=== PATIENT | female | born 1990 | race Hispanic/Latino ===

== ENCOUNTER 2021-05-28 17:58 | Emergency (ER) | payer BC, OTHER ==
[2021-05-28] MEDS ORDERED: NA CHLORIDE 0.9% 500 ML ONE (19:12)
[2021-05-28] MEDS ORDERED: KETOROLAC 30 MG/ML INJ ONE (19:12)
[2021-05-28 19:22] LABS: Urine Blood 2+ (Negative); Urine Glucose Negative (Negative); Urine Protein Negative (Negative); Urine Specific Gravity 1.025 (1.005-1.030)
[2021-05-28 19:44] LABS: Urine Specific Gravity/Preg 1.025 (1.005-1.030)
[2021-05-28 19:57] LABS: Basophils % 0.4 % (0-1.3); Hematocrit 35.4 % (36.0-45.0); Lymphocytes % 32.3 % (15.3-44.8); MPV 8.8 fL (7.6-11.3)
[2021-05-28 20:04] LABS: Albumin 3.5 g/dL (3.4-5.0); Bilirubin Total 0.2 mg/dL (0.2-1.0); Potassium 3.8 mmol/L (3.5-5.1); Protein, Total 7.7 g/dL (6.4-8.2)
--- NOTE | 2021-05-28 20:35 | EDPHYS ---
Physician Documentation [facility] Name: Amira Soto Age: 30 yrs Sex: Female : 1990 Arrival Date: 05/28/2021 Time: 18:11 Bed 20 Private MD: ED Physician Eder Jimenez HPI: 05/28 18:47 This 30 yrs old Female presents to ER via Ambulatory with complaints of Hand cora Pain - cramping. 18:47 The patient or guardian reports decreased range of motion, pain. The complaints affect cora the right hand diffusely. Context: The problem was sustained at an unknown location, resulted from an unknown cause. Onset: The symptoms/episode began/occurred today. Modifying factors: The symptoms are alleviated by elevation, holding still, the symptoms are aggravated by movement. Associated signs and symptoms: The patient has no apparent associated signs or symptoms. Severity of symptoms: At their worst the symptoms were moderate, in the emergency department the symptoms are unchanged. The patient has not experienced similar symptoms in the past. 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 - Social history:: Smoking status: Patient denies any tobacco usage or history of. ROS: 18:49 Constitutional: Negative for fever, chills, and weight loss, Eyes: Negative for injury, cora pain, redness, and discharge, ENT: Negative for injury, pain, and discharge, Neck: Negative for injury, pain, and swelling, Cardiovascular: Negative for chest pain, palpitations, and edema, Respiratory: Negative for shortness of breath, cough, wheezing, and pleuritic chest pain, Abdomen/GI: Negative for abdominal pain, nausea, vomiting, diarrhea, and constipation, Back: Negative for injury and pain, : Negative for injury, bleeding, discharge, and swelling, Skin: Negative for injury, rash, and discoloration, Neuro: Negative for headache, weakness, numbness, tingling, and seizure, Psych: Negative for depression, anxiety, suicide ideation, homicidal ideation, and hallucinations, Allergy/Immunology: Negative for hives, rash, and allergies, Endocrine: Negative for neck swelling, polydipsia, polyuria, polyphagia, and marked weight changes, Hematologic/Lymphatic: Negative for swollen nodes, abnormal bleeding, and unusual bruising. 18:49 MS/extremity: Positive for decreased range of motion, pain, of the right hand. Exam: 18:49 Constitutional: This is a well developed, well nourished patient who is awake, alert, cora and in no acute distress. Head/Face: Normocephalic, atraumatic. Eyes: Pupils equal round and reactive to light, extra-ocular motions intact. Lids and lashes normal. Conjunctiva and sclera are non-icteric and not injected. Cornea within normal limits. Periorbital areas with no swelling, redness, or edema. ENT: Nares patent. No nasal discharge, no septal abnormalities noted. Tympanic membranes are normal and external auditory canals are clear. Oropharynx with no redness, swelling, or masses, exudates, or evidence of obstruction, uvula midline. Mucous membranes moist. Neck: Trachea midline, no thyromegaly or masses palpated, and no cervical lymphadenopathy. Supple, full range of motion without nuchal rigidity, or vertebral point tenderness. No Meningismus. Chest/axilla: Normal chest wall appearance and motion. Nontender with no deformity. No lesions are appreciated. Cardiovascular: Regular rate and rhythm with a normal S1 and S2. No gallops, murmurs, or rubs. Normal PMI, no JVD. No pulse deficits. Respiratory: Lungs have equal breath sounds bilaterally, clear to auscultation and percussion. No rales, rhonchi or wheezes noted. No increased work of breathing, no retractions or nasal flaring. Abdomen/GI: Soft, non-tender, with normal bowel sounds. No distension or tympany. No guarding or rebound. No evidence of tenderness throughout. Back: No spinal tenderness. No costovertebral tenderness. Full range of motion. Skin: Warm, dry with normal turgor. Normal color with no rashes, no lesions, and no evidence of cellulitis. Neuro: Awake and alert, GCS 15, oriented to person, place, time, and situation. Cranial nerves II-XII grossly intact. Motor strength 5/5 in all extremities. Sensory grossly intact. Cerebellar exam normal. Normal gait. Psych: Awake, alert, with orientation to person, place and time. Behavior, mood, and affect are within normal limits. 18:49 Musculoskeletal/extremity: ROM: intact in all extremities, full active range of motion, full passive range of motion, in the right hand, Circulation is intact in all extremities. Sensation intact. Compartment Syndrome exam of affected extremity: is normal. Joints: All joints are normal except Vital Signs: 18:25 BP 135 / 90; Pulse 76; Resp 16; Temp 97.8; Pulse Ox 100% ; Weight 104.33 kg; Height 5 vg1 ft. 5 in. (165.10 cm); Pain 4/10; 19:45 BP 116 / 80; Pulse 67; Resp 20; Pulse Ox 100% on R/A; cc4 18:25 Body Mass Index 38.27 (104.33 kg, 165.10 cm) vg1 MDM: 18:34 Patient medically screened. cora 18:52 Differential diagnosis: closed fracture, contusion, tendonitis. Data reviewed: vital cora signs, nurses notes, lab test result(s), radiologic studies, plain films. Data interpreted: hall monitor: rate is 76 beats/min, rhythm is regular, Pulse oximetry: on room air is 100 %. Test interpretation: by ED physician or midlevel provider: plain radiologic studies. Counseling: I had a detailed discussion with the patient and/or guardian regarding: the historical points, exam findings, and any diagnostic results supporting the discharge/admit diagnosis, lab results, radiology results, the need for outpatient follow up, for definitive care, a family practitioner, a hand specialist. 20:34 Counseling: I had a detailed discussion with the patient and/or guardian regarding: the pm1 historical points, exam findings, and any diagnostic results supporting the discharge/admit diagnosis, lab results, radiology results, the need for outpatient follow up, to return to the emergency department if symptoms worsen or persist or if there are any questions or concerns that arise at home. 05/28 18:46 Order name: CBC with Diff cora 05/28 19:21 Order name: Urine Dipstick-Ancillary; Complete Time: 20:05 EDMS 05/28 19:29 Order name: Urine --Ancillary (enter results); Complete Time: 20:05 mw2 05/28 19:50 Order name: Comprehensive Metabolic Panel; Complete Time: 20:28 EDMS 05/28 18:46 Order name: Hand Right 3 View XRAY [facility] 05/28 18:46 Order name: Urine Dipstick-Ancillary (obtain specimen); Complete Time: 19:22 [facility] 05/28 18:46 Order name: Urine Test (obtain specimen); Complete Time: 19:22 [facility] 05/28 19:50 Order name: CBC with Automated Diff; Complete Time: 20:28 EDMS Administered Medications: 19:33 Drug: NS 0.9% 500 ml Route: IV; Rate: bolus; Site: right antecubital; cc4 20:53 Follow up: IV Status: Completed infusion; IV Intake: 500ml em 19:33 Drug: TORadol (ketorolac) 30 mg Route: IVP; Site: right antecubital; cc4 20:53 Follow up: Response: No adverse reaction; No change in condition em 20:51 Drug: Flexeril (cyclobenzaprine) 10 mg Route: PO; em 20:54 Follow up: Response: Medication administered at discharge. em Disposition: 05/29 05:58 Co-signature as Attending Physician, Eder Jimenez MD I agree with the assessment and cora plan of care. Disposition Summary: 05/28/21 20:34 Discharge Ordered Location: Home pm1 Problem: new pm1 Symptoms: have improved pm1 Condition: Stable pm1 Diagnosis - Pain in right hand pm1 Followup: cora - With: Private Physician - When: 2 - 3 days - Reason: Recheck today's complaints, Continuance of care, Re-evaluation by your physician Followup: cora - With: - When: 2 - 3 days - Reason: Recheck today's complaints, Re-evaluation by your physician Discharge Instructions: - Discharge Summary Sheet cora - Muscle Cramps and Spasms cora - Musculoskeletal Pain cora - Pain Without a Known Cause cora - How to Use Cold Therapy, [id number] cora - Muscle Cramps and Spasms, [id number] cora Forms: - Medication Reconciliation Form pm1 - Thank You Letter pm1 - Antibiotic Education pm1 - Prescription Opioid Use pm1 - Work release form em Prescriptions: - Diclofenac Sodium 75 mg Oral tablet,delayed release (DR/EC) - take 1 tablet by ORAL route 2 times per day; 20 tablet; Refills: 0, Product cora Selection Permitted - Medrol (Quinn) 4 mg Oral Tablets, Dose Pack - take 1 tablet by ORAL route as directed - follow package instructions; 1 cora packet; Refills: 0, Product Selection Permitted Signatures: Dispatcher [employer] EDEder Michelle MD MD cha Munoz, Edgar, RN RN Bernard Gar, TIME CHECKER TIME CHECKER pm1 Richa Edmondson RN RN vg1 Katelin Sims RN RN cc4 Corrections: (The following items were deleted from the chart) 05/28 20:10 18:47 CBC with Automated Diff ordered. EDMS EDMS 20:10 18:47 COMPREHENSIVE METABOLIC PANEL+C.LAB.BRZ ordered. EDMS EDMS 20:10 20:05 COMPREHENSIVE METABOLIC PANEL+C.LAB.BRZ reviewed. pm1 EDMS 20:10 20:05 CBC with Automated Diff reviewed. pm1 EDMS
--- NOTE | 2021-05-28 20:35 | ER ---
Nurse's Notes [facility] Name: Amira Soto Age: 30 yrs Sex: Female : 1990 Arrival Date: 05/28/2021 Time: 18:11 Bed 20 Private MD: Diagnosis: Pain in right hand Presentation: 05/28 18:25 Chief complaint: Patient states: This morning pt was at work and was throwing the trash vg1 and and Right hand cramped up and was unable to assessment director the trash and fell out of hand. Also states pain became worse throughout the day. Denies any injury/trauma to Right hand. Coronavirus screen: Vaccine status: Patient reports being unvaccinated. Client denies travel out of the [place] in the last 14 days. Ebola Screen: Patient negative for fever greater than or equal to 101.5 degrees Fahrenheit, and additional compatible Ebola Virus Disease symptoms. Initial Sepsis Screen: Does the patient meet any 2 criteria? No. Patient's initial sepsis screen is negative. Does the patient have a suspected source of infection? No. Patient's initial sepsis screen is negative. Risk Assessment: Do you want to hurt yourself or someone else? Patient reports no desire to harm self or others. Onset of symptoms was May 28, 2021. 18:25 Method Of Arrival: Ambulatory vg1 18:25 Acuity: DALLIN 3 vg1 Triage Assessment: 18:31 General: Appears in no apparent distress. uncomfortable, Behavior is calm, cooperative. vg1 Pain: Complains of pain in right hand. 18:33 Neuro: Level of Consciousness is awake, alert, obeys commands, Oriented to person, vg1 place, time, situation, Production Estimator are weak on right Moves all extremities. Gait is steady, Speech is normal, Facial symmetry appears normal. 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 - Social history:: Smoking status: Patient denies any tobacco usage or history of. Screenin:33 Abuse screen: Denies threats or abuse. Nutritional screening: No deficits noted. cc4 Tuberculosis screening: No symptoms or risk factors identified. Fall Risk None identified. Assessment: 19:33 Reassessment: Patient appears in no apparent distress at this time. General: Appears in cc4 no apparent distress. Behavior is calm, cooperative. Pain: Complains of pain in right hand Pain does not radiate. Pain currently is 7 out of 10 on a pain scale. at worst was 9 out of 10 on a pain scale. level that patient reports is acceptable is 0 out of 10 on a pain scale. Quality of pain is described as aching, Pain began this am; denies any injury. 19:33 Neuro: No deficits noted. Level of Consciousness is awake, alert, obeys commands, cc4 Oriented to person, place, time, situation. Cardiovascular: No deficits noted. Respiratory: No deficits noted. Airway is patent Respiratory effort is even, unlabored, Respiratory pattern is regular, symmetrical. GI: No signs and/or symptoms were reported involving the gastrointestinal system. : No signs and/or symptoms were reported regarding the genitourinary system. EENT: No signs and/or symptoms were reported regarding the EENT system. Derm: No deficits noted. Skin is intact, is healthy with good turgor. Musculoskeletal: No deficits noted. Capillary refill < 3 seconds, Range of motion: intact in all extremities, No redness/swelling noted right hand; # 20 g angiocath inserted right AC x 2 attempts \T\ converted to saline lock; blood drawn \T\ sent to lab; IV NS hung to saline lock right AC \T\ infusing \T\ open rate with no s/sx's of infiltration, anny. well; toradol 30 mg given slow IVP as ordered for right hand pain; urine specimen obtained with dipstick \T\ UPT done; UPT negative. Vital Signs: 18:25 BP 135 / 90; Pulse 76; Resp 16; Temp 97.8; Pulse Ox 100% ; Weight 104.33 kg; Height 5 vg1 ft. 5 in. (165.10 cm); Pain 4/10; 19:45 BP 116 / 80; Pulse 67; Resp 20; Pulse Ox 100% on R/A; cc4 18:25 Body Mass Index 38.27 (104.33 kg, 165.10 cm) vg1 ED Course: 18:11 Patient arrived in ED. am2 18:31 Triage completed. vg1 18:31 Arm band placed on. vg1 18:34 Eder Jimenez MD is Attending Physician. cora 19:04 Winston Hanks, RN is Primary Nurse. bp 19:14 Hand Right 3 View XRAY In Process Unspecified. EDMS 19:29 Primary Nurse role handed off by Winston Hanks, TY mw2 19:33 Patient has correct armband on for positive identification. Bed in low position. Call cc4 light in reach. Side rails up X 1. 19:33 No provider procedures requiring assistance completed. cc4 19:41 Katelin Sims, RN is Primary Nurse. cc4 19:42 CBC with Diff Sent. cc4 20:34 Edward Boston MD is Referral Physician. pm1 20:53 IV discontinued, intact, bleeding controlled, No redness/swelling at site. Pressure em dressing applied. Administered Medications: 19:33 Drug: NS 0.9% 500 ml Route: IV; Rate: bolus; Site: right antecubital; cc4 20:53 Follow up: IV Status: Completed infusion; IV Intake: 500ml em 19:33 Drug: TORadol (ketorolac) 30 mg Route: IVP; Site: right antecubital; cc4 20:53 Follow up: Response: No adverse reaction; No change in condition em 20:51 Drug: Flexeril (cyclobenzaprine) 10 mg Route: PO; em 20:54 Follow up: Response: Medication administered at discharge. em Intake: 20:53 IV: 500ml; Total: 500ml. em Outcome: 20:34 Discharge ordered by . pm1 20:53 Discharged to home ambulatory. em 20:53 Condition: stable 20:53 Discharge instructions given to patient, Instructed on discharge instructions, follow up and referral plans. medication usage, Demonstrated understanding of instructions, follow-up care, medications, Prescriptions given X 2. 20:54 Patient left the ED. em Signatures: Dispatcher [employer] EDMS Eder Jimenez MD MD cha Munoz, Edgar, RN RN em Bernard Serrano, INTERNATIONAL NURSE INTERNATIONAL NURSE pm1 Zeenat Gunn am2 Winston Hanks, TY RN bp Anjali Benjamin mw2 Richa Edmondson RN RN vg1 Levi, Katelin, RN RN cc4
--- NOTE | 2021-05-28 20:38 | RAD REPORT ---
EXAM DESCRIPTION: RAD - Hand Right 3 View - 05/28/2021 7:14 pm CLINICAL HISTORY: PAIN COMPARISON: No comparisons FINDINGS: No acute fracture. No malalignment. No significant focal degenerative changes. IMPRESSION: No acute osseous abnormality involving the right hand.
[2021-05-28] MEDS ORDERED: CYCLOBENZAPRINE 10 MG TAB ONE (20:46)
[2021-05-28 21:00] VITALS: TEMP 97.8; O2SAT 100
[2021-05-28 21:02] VITALS: BP 116/80
== END 2021-05-28 20:54 | disposition home or self-care (01) ==
LOC: ER 17:58
DX: M79.641 Pain in right hand (principal)
CPT/HCPCS: 96361; 85025; 81025; 81003; 80053; 73130; 96374; 99284; J7040

== ENCOUNTER 2024-08-07 20:55 | Emergency (ER) | payer SELFPAY ==
--- OUTSIDE RECORDS SUMMARY | 2024-08-07 20:58 | XMS REPORT | Continuity of Care Document ---
Author Name Unknown Address [address] [facility] [address] [place] [address] [facility] thconnect Address [address] [facility] [address] [place] [address] Care Team Providers Care Hogshead Opener Name Role Phone PCP, PATIENT DOES NOT HAVE A Primary Care Physic kvng Unavailable Karina Farrell Attending Clinician Unavailable ANITA BLANCA Attending Clinician Unavailable Anita Blanca DO Attending Clinician [phone] MARIELENA HOPKINS Attending Clinician Unavailable Marielena Hall Attending Clinician [phone] JAMES LOVE Attending Clinician Unavaila JAMES Newton Attending Clinician Unavaila KAREN Junior Attending Clinician Unavailab Karen Arora DO Attending Clinician [phone] Kerry Arboleda MD Attending Clinician [phone] KERRY ARBOLEDA Attending Clinician Unavailabl apurva Bernabe Savi MATTHEWS Attending Clinician [phone] Isaias LINE PALLETIZER, Deysi Apodaca Attending Clinician [phone] Samy CLEMENT, Clifford Silveira Attending Clinician [phone] Doctor Unassigned, [place] Attending Clinician U markie AguilarDorota Short Attending Clinician + [phone] Magdy CLEMENT, Andi Aponte Attending Clinician [phone] CLIFFORD BAH Admitting Clinician Unavailable Karina Farrell Admitting Clinician Unavailable ANITA BLANCA Admitting Clinician Unavailable MARIELENA HOPKINS Admitting Clinician Unavailable JAMES LOVE Admitting Clinician Unavaila KAREN Junior Admitting Clinician Unavailab igor Bah MD, Clifford Silveira Admitting Clinician [phone] Payers Payer Name Policy Type Policy Number Effective Date Expirati on Date Source [employer] MEDICAID [id number] 2018 00:00:00 [place] [id number] 2018 00:00:00 Problems Condition Name Condition Details Condition Category Status Onset Date Resolution Date Last Treatment Date Treating Clinician Comments Source No known active problems No known active problems Disease [facility] Allergies, Adverse Reactions, Alerts Allergy Name Allergy Type Status Severity Reaction(s) Onset Date Inactive Date Treating Clinician Comments Source No Known Allergie s DA Active U 2014-07 00:00: 00 [facility] No Known Allergie s DA Active U 2014-07 00:00: 00 [facility] NO KNOWN ALLERGIE S Drug Class Active [facility] Social History Social Habit Start Date Stop Date Quantity Comments Source ASSERTION 2020-06-10 00:00:00 [facility] Alcoholic beverage intake 2022-05-22 00:00:00 2022-05-22 00:00:00 0 /d [facility] Exposure to SARS-CoV-2 (event) 2022-05-08 00:00:00 2022-05-18 08:36:00 Not sure [facility] Alcohol intake 2020-01-27 00:00:00 2020-01-27 00:00:00 0 /d [facility] History of Social function 2019-01-22 00:00:00 2019-01-22 00:00:00 [facility] Tobacco use and exposure 2018-11-26 00:00:00 2018-11-26 00:00:00 Smokeless tobacco non-user [facility] Sex assigned at 1990 00:00:00 1990 00:00:00 [facility] Smoking Status Start Date Stop Date Source Never smoked tobacco [facility] Medications Ordered Medication Name Filled Medication Name Start Date Stop Date Current Medication? Ordering Clinician Indication Dosage Frequency Signature (SIG) Comments Components Source naproxen sodium (ANAPROX DS) 550 mg tablet 11-30 00:00: 00 Yes [id number] 550mg Take 1 tablet by mouth in the morning and 1 tablet in the evening. Take with meals. [facility] cephALEXin (KEFLEX) capsule 500 mg 2021-07 16:58: 00 05-18 17:13 :00 No 500mg 500 mg, Oral, ONCE, 1 dose, On Sat05/18/22 at 1200, DONY
Re ason for Anti-Infec tive: Documented Infection< br>Documen tamia Infection Site: Urine
D uration of Therapy: Other (see Comments) [facility] acetaminoph en (TYLENOL) tablet 650 mg 2021-07 14:11: 00 05-18 14:16 :00 No 650mg 650 mg, Oral, ONCE, 1 dose, On Sat05/18/22 at 0915, DONY [facility] cephALEXin (KEFLEX) 500 mg capsule 2021-07 00:00: 00 05-26 05:59 :00 No [id number] 500mg Take 1 capsule by mouth in the morning and 1 capsule in the evening. Do all this for 7 days. [facility] acetaminoph en (TYLENOL) tablet 650 mg 04-06 14:00: 00 04-06 14:16 :00 No 650mg 650 mg, Oral, ONCE, 1 dose, On Sat04/06/22 at 0900, DONY [facility] cephALEXin (KEFLEX) 500 mg capsule 04-06 00:00: 00 04-12 04:59 :00 No [id number] 500mg Take 1 capsule by mouth 4 (four) times daily for 5 days. [facility] naproxen sodium (ANAPROX DS) 550 mg tablet 13 00:00: 00 11-30 00:00 :00 No [id number] 550mg Take 1 tablet by mouth 2 (two) times daily with meals. [facility] vit 33-iron-fol ic-dha (SELECT-OB + DHA) 29 mg iron-1 mg -250 mg combo pack 11-26 00:00: 00 Yes [id number] 1{packe t} Take 1 Packet by mouth daily. [facility] vit 33-iron-fol ic-dha (SELECT-OB + DHA) 29 mg iron-1 mg -250 mg combo pack 11-26 00:00: 00 11-30 00:00 :00 No [id number] 1{packe t} Take 1 Packet by mouth daily. [facility] Immunizations Ordered Immunization Name Filled Immunization Name Date Status Comments Source TDAP 2016-10-19 00:00:00 Completed [facility] HPV9 2016-10-19 00:00:00 Completed [facility] TDAP 2016-10-19 00:00:00 Completed [facility] HPV9 2016-10-19 00:00:00 Completed [facility] TDAP 2016-10-19 00:00:00 Completed [facility] HPV9 2016-10-19 00:00:00 Completed [facility] TDAP 2016-10-19 00:00:00 Completed [facility] HPV9 2016-10-19 00:00:00 Completed [facility] TDAP Unknown Completed [facility] HPV9 Unknown Completed [facility] TDAP Unknown Completed [facility] HPV9 Unknown Completed [facility] Vital Signs Vital Name Observation Time Observation Value Comments S davian Systolic blood pressure 2023-12-02 03:44:00 144 mm[Hg] [facility] Diastolic blood pressure 2023-12-02 03:44:00 95 mm[Hg] [facility] Heart rate 2023-12-02 03:44:00 71 /min [facility] Body temperature 2023-12-02 03:44:00 37 Sophia [facility] Respiratory rate 2023-12-02 03:44:00 16 /min [facility] Body height 2023-12-02 03:44:00 165.1 cm [facility] Body weight 2023-12-02 03:44:00 99.791 kg [facility] BMI 2023-12-02 03:44:00 36.61 kg/m2 [facility] Oxygen saturation in Arterial blood by Pulse oximetry 2023-12-02 03:44:00 98 /min [facility] Systolic blood pressure 2022-05-18 17:00:00 104 mm[Hg] [facility] Diastolic blood pressure 2022-05-18 17:00:00 67 mm[Hg] [facility] Heart rate 2022-05-18 17:00:00 [facility] Res[facility] 2022-05-18 17:00:00 16 /min [facility] Oxygen saturation in Arterial blood by Pulse oximetry 2022-05-18 17:00:00 100 /min [facility] Body temperature 2022-05-18 13:37:00 36.28 Sophia [facility] Body weight 2022-05-18 13:37:00 96.616 kg [facility] BMI 2022-05-18 13:37:00 41.60 kg/m2 [facility] Systolic blood pressure 2022-04-06 16:53:00 131 mm[Hg] [facility] Diastolic blood pressure 2022-04-06 16:53:00 83 mm[Hg] [facility] Heart rate 2022-04-06 16:53:00 72 /min [facility] Body temperature 2022-04-06 16:53:00 36.67 Sophia [facility] Respiratory rate 2022-04-06 16:53:00 14 /min [facility] Oxygen saturation in Arterial blood by Pulse oximetry 2022-04-06 16:53:00 99 /min [facility] Body height 2022-04-06 13:47:00 152.4 cm [facility] Body weight 2022-04-06 13:47:00 95.255 kg [facility] BMI 2022-04-06 13:47:00 41.01 kg/m2 [facility] Systolic blood pressure 2021-05-28 22:37:55 145 mm[Hg] [facility] Diastolic blood pressure 2021-05-28 22:37:55 98 mm[Hg] [facility] Heart rate 2021-05-28 22:37:55 75 /min [facility] Body temperature 2021-05-28 22:37:55 36.78 Sophia [facility] Respiratory rate 2021-05-28 22:37:55 17 /min [facility] Oxygen saturation in Arterial blood by Pulse oximetry 2021-05-28 22:37:55 98 /min [facility] Body height 2021-05-28 21:45:00 165.1 cm [facility] Body weight 2021-05-28 21:45:00 104.327 kg [facility] BMI 2021-05-28 21:45:00 38.27 kg/m2 [facility] Systolic blood pressure 2021-04-24 18:25:00 134 mm[Hg] [facility] Diastolic blood pressure 2021-04-24 18:25:00 88 mm[Hg] [facility] Heart rate 2021-04-24 18:25:00 59 /min [facility] Body height 2021-04-24 18:25:00 165.1 cm [facility] Body weight 2021-04-24 18:25:00 106.142 kg [facility] BMI 2021-04-24 18:25:00 38.94 kg/m2 [facility] Procedures Procedure Date / Time Performed Performing Clinician Source [id number] 2022-10-27 00:00:00 [facility] [id number] 2022-10-27 00:00:00 [facility] [id number] 2022-10-27 00:00:00 [facility] [id number] 2022-10-27 00:00:00 [facility] [id number] 2022-10-27 00:00:00 [facility] [id number] 2022-10-27 00:00:00 [facility] URINALYSIS 2022-05-18 15:39:00 Marielena Hopkins [facility] FIRST TRIMESTER LESS THAN 14 WEEKS WITH TRANSVAGINAL 2022-05-18 15:32:55 Marielena Hopkins [facility] BASIC METABOLIC PANEL (NA, K, CL, CO2, GLUCOSE, BUN, CREATININE, CA) 2022-05-18 14:11:00 Marielena Hopkins [facility] TOTAL BETA HCG ASSAY 2022-05-18 14:11:00 Nikolay Hopkins [facility] CBC WITH DIFF 2022-05-18 14:11:00 Marielena Hopkins [facility] CONSENT/REFUSAL FOR DIAGNOSIS AND TREATMENT 2022-05-18 13:30:48 Doctor Unassigned, [place] [facility] FIRST TRIMESTER LESS THAN 14 WEEKS WITH TRANSVAGINAL 2022-04-06 15:45:25 James Love [facility] URINALYSIS 2022-04-06 14:53:00 James Love [facility] COMP. METABOLIC PANEL ([id number]) 2022-04-06 14:06:00 James oLve [facility] TOTAL BETA HCG ASSAY 2022-04-06 14:06:00 Osmel Love [facility] CBC WITH DIFF 2022-04-06 14:06:00 James Love [facility] CONSENT/REFUSAL FOR DIAGNOSIS AND TREATMENT 2022-04-06 13:45:14 Doctor Unassigned, [place] [facility] XR HAND 3+ VW RIGHT 2021-05-28 22:18:31 Jackie Mosquera ra [facility] CONSENT/REFUSAL FOR DIAGNOSIS AND TREATMENT 2021-05-28 21:38:54 Doctor Unassigned, [place] [facility] [id number] 2021-02-15 00:00:00 [facility] [id number] 2021-02-15 00:00:00 [facility] Encounters Start Date/Time End Date/Time Encounter Type Admission Type Attending [facility] Care Department Encounter ID Source 2021-07-25 11:15:04 Outpatient P [facility] [id number] [facility] 2021-05-15 22:56:29 Emergency [facility] [id number] [facility] 2021-05-14 20:39:11 Outpatient P [facility] [id number] [facility] 2021-05-14 20:38:41 Emergency [facility] [id number] [facility] 2021-05-12 06:46:35 Emergency [facility] [id number] [facility] 2021-05-11 17:50:26 Emergency [facility] [id number] [facility] 2021-01-27 15:21:00 Inpatient DARIO Farrell Karina [facility] LD [id number] [facility] 2023-12-01 22:51:00 2023-12-01 23:53:00 Emergency ANITA DEJESUS [facility] ERT [id number] [facility] 2023-12-01 22:51:00 2023-12-01 23:53:00 Emergency Anita Blanca [facility] [id number] 350.1.13.10 4.2.7.2.686 [id number] [facility] 2022-10-26 15:44:00 2022-10-30 14:59:00 Inpatient EM Karina Farrell [facility] OBPP [id number] [facility] 2022-09-25 05:21:00 2022-09-25 07:16:00 Emergency EM Karina Farrell [facility] JOI [id number] [facility] 2022-05-18 08:38:00 2022-05-18 12:20:00 Emergency X [facility] ERT [id number] [facility] 2022-05-18 08:38:00 2022-05-18 12:20:00 Emergency Sandeep [facility] 1.2.840.114 350.1.13.10 4.2.7.2.686 [id number] [facility] 2022-04-06 08:44:00 2022-04-06 12:03:00 Emergency X [facility] ERT [id number] [facility] 2022-04-06 08:44:00 2022-04-06 12:03:00 [facility] 1.2.840.114 350.1.13.10 4.2.7.2.686 [id number] [facility] 2021-05-28 15:49:00 2021-05-28 16:40:00 Emergency X KAREN MOSQUERA [facility] ERT [id number] [facility] 2021-05-28 15:49:00 2021-05-28 16:40:00 Emergency Karen Mosquera [facility] 1.2.840.114 350.1.13.10 4.2.7.2.686 [id number] [facility] 2021-04-24 13:55:51 2021-04-24 23:59:00 Hospital Encounter Kerry Arboleda [facility] 1..840.114 350.1.13.10 4.2.7.2.686 [id number] [facility] 2021-04-24 13:30:00 2021-04-24 14:13:38 Outpatient R KERRY ARBOLEDA [facility] [id number] [facility] 2021-04-24 13:21:54 2021-04-24 14:13:38 Office Visit Kerry Arboleda [facility]NE [facility] 1..840.114 350.1.13.10 4.2.7.2.686 [id number] [facility] 2021-04-24 13:30:00 2021-04-24 13:30:00 Outpatient R KERRY ARBOLEDA [facility] [id number] [facility] 2021-04-03 14:45:00 2021-04-03 15:52:13 Outpatient R KERRY ARBOLEDA [facility] [id number] [facility] 2021-04-03 14:41:22 2021-04-03 15:52:13 Office Visit Kerry Arboleda [facility]?JOCELYNE [facility] 1..840.114 350.1.13.10 4.2.7.2.686 [id number] [facility] 2021-03-29 17:43:00 2021-03-29 20:16:00 Emergency Savi Bernabe [facility] 1..840.114 350.1.13.10 4.2.7.2.686 [id number] [facility] 2021-02-15 03:59:00 2021-02-16 13:43:00 Inpatient Karina Sosa [facility] OBPP [id number] [facility] 2020-12-02 19:08:00 2020-12-02 22:15:00 Hospital Encounter Deysi Esparza [facility] 1.2.840.114 350.1.13.10 4.2.7.2.686 [id number] [facility] 2020-12-02 19:08:00 2020-12-02 22:15:00 Hospital Encounter Deysi Esparza V[facility] 1.2.840.114 350.1.13.10 4.2.7.2.686 [id number] 2020-01-29 00:00:00 2020-01-29 00:00:00 Patient Secure Msg Doctor Unassigned, [place] [facility] 1.2.840.114 350.1.13.10 4.2.7.2.686 [id number] [facility] 2020-01-28 00:00:00 2020-01-28 00:00:00 Telephone [facility] 1.2.840.114 350.1.13.10 4.2.7.2.686 [id number] [facility] 2020-01-28 00:00:00 2020-01-28 00:00:00 Telephone [facility] 1.2.840.114 350.1.13.10 4.2.7.2.686 [id number] 2020-01-26 21:36:28 2020-01-27 01:23:00 Emergency Andi Curran [facility] 1.2.840.114 350.1.13.10 4.2.7.2.686 [id number] [facility] 2020-01-26 21:36:28 2020-01-27 01:23:00 Emergency Andi Curran [facility] 1.2.840.114 350.1.13.10 4.2.7.2.686 [id number] 2019-10-26 12:04:40 2019-10-26 13:31:00 Emergency X ANITA BLANCA [facility] ERT [id number] [facility] 2019-10-26 12:04:40 2019-10-26 13:31:00 Emergency Anita Blanca [facility] 1.2.840.114 350.1.13.10 4.2.7.2.686 [id number] [facility] 2019-10-26 12:04:40 2019-10-26 13:31:00 Emergency Singer [facility] 1.2.840.114 350.1.13.10 4.2.7.2.686 [id number] Results Test Description Test Time Test Comments Results Result Co mments Source CAPILLARY BLOOD [id number] 17:51:00* Test Item Value Reference Range Interpretation Comme nts CAPILLARY BLOOD GAS PH (test code = PHC) 7.305 7.35-7.45 L CAPILLARY BLOOD GAS PCO2 (te st code = PCO2C) 43.9 mmHg CAPILLARY BLOOD GAS PO2 (jose t code = PO2C) 29.0 mmHg CBG HCO3 (test code = HCO3C) 21.4 meq/L CBG BASE EXCESS (test code = BEC) -4.9 CBG O2 SATURATION (test code = SATC) 49.0 % CAPILLARY BLOOD GAS TYPE (te st code = TYPEC) CBLV CAPILLARY BLOOD GAS FIO2 (te st code = FIO2C) 21.0 % CAPILLARY BLOOD GAS DEL (jose t code = DELC) RA AG HEPATITIS B [id number] 19:36:00* Test Item Value Reference Range Interpretation Comme nts AG HEPATITIS B SURFACE (test code = HBSAG) NONREACTIVE NONREACTIVE AB HEPATITIS C [id number] 19:36:00* Test Item Value Reference Range Interpretation Comme nts AB HEPATITIS C (test code = HCVAB) NONREACTIVE NONREACTIVE SIGNAL TO CUTOFF (test code = CUTOFF) 0.08 <0.80 N AB [id number] 19:36:00* Test Item Value Reference Range Interpretation Comme nts AB TREPONEMA (test code = TREPAB) NONREACTIVE NONREACTIVE AB HIV 1 19:36:00* Test Item Value Reference Range Interpretation Comme nts AB HIV 1 2 (test code = [id number]) NONREACTIVE NONREACTIVE Done by [employer] HIV Ag/Ab Combo Screen UR PROTEIN/CREATININE [id number] 16:14:00* Test Item Value Reference Range Interpretation Comme nts UR PROTEIN RANDOM (test code = PROTU) 5.8 mg/dL UR CREATININE RANDOM (test code = CREATU) 15.9 mg/dL PROTEIN/CREATININE RATIO (te st code = P/CRATIO) 364.7 mg/gcrea <200 H URINALYSIS [id number] 15:52:00* Test Item Value Reference Range Interpretation Comme nts UA COLOR (test code = COLU) STRAW YELLOW UA APPEARANCE (test code = APPU) CLEAR CLEAR UA GLUCOSE DIPSTICK (test co de = DGLUU) NEGATIVE NEG UA BILIRUBIN DIPSTICK (test code = BILU) NEGATIVE NEG UA KETONE DIPSTICK (test cod e = KETU) NEGATIVE NEG UA SPECIFIC GRAVITY (test co de = SGU) 1.003 1.001-1.035 N UA BLOOD DIPSTICK (test code = CHIQUI) NEG NEG UA PH DIPSTICK (test code = MARGI) 7.0 5-9 UA PROTEIN DIPSTICK (test co de = PROU) NEGATIVE NEG UA UROBILINIOGEN DIPSTICK (test code = URO) NEGATIVE mg/dL NEG UA NITRITE DIPSTICK (test co de = ANGEL) NEG NEG UA LEUKOCYTE ESTERASE DIPSTI CK (test code = LEUU) TRACE NEG A UA WBC (test code = WBCU) 0-2 #/hpf NONE SEEN UA RBC (test code = RBCU) 0-2 #/hpf NONE SEEN UA EPITHELIAL CELLS (test co de = EPIU) RARE #/HPF RARE-FEW UA BACTERIA (test code = BACU) RARE /HPF RARE-FEW URINE SAMPLE: CLEAN CATCHCOMPREHENSIVE METABOLIC [id number] 15:49:00* Test Item Value Reference Range Interpretation Comme nts SODIUM (test code = NA) 137 mEq/L 135-145 N POTASSIUM (test code = K) 4.1 mEq/L 3.5-5.0 N CHLORIDE (test code = CL) 104 mEq/L 100-115 N CARBON DIOXIDE (test code = CO2) 21 mEq/L 22-31 L ANION GAP (test code = GAP) 16.60 10-20 N GLUCOSE (test code = GLU) 80 mg/dL 65-110 N BLOOD UREA NITROGEN (test code = BUN) 12 mg/dL 7-18 N GLOMERULAR FILTRATION RATE (test code = GFR) 119 ml/min >60 N The Glomerular Filtration Rate is a calculated parameterbased on serum Creatinine, patient age and sex. GFR valuesless than 60 mL/min/1.73 square meters are indicative ofChronic Kidney Disease. Values less than 15 mL/min/1.73square meters indicate Kidney failure. The calculation forGFR is based on the CKD-EPI (2020) calculation. This formulais race indifferent and is the recommended formula for GFRby the National Kidney Foundation for Adults.The GFR will not calculate if the sex is unknown or if thepatient's age is <18 years. CREATININE (test code = CREAT) 0.7 mg/dL 0.5-1.0 N TOTAL PROTEIN (test code = PROT) 6.5 gm/dL 6.3-8.2 N ALBUMIN (test code = ALB) 2.5 gm/dL 3.4-4.8 L CALCIUM (test code = CA) 8.7 mg/dL 8.4-10.2 N BILIRUBIN TOTAL (test code = BILT) 0.2 mg/dL 0.2-1.0 N SGOT/AST (test code = AST) 16 units/L 15-37 N SGPT/ALT (test code = ALT) 22 units/L 12-78 N ALKALINE PHOSPHATASE TOTAL (test code = ALKP) 570 units/L 46-116 H URIC [id number] 15:49:00* Test Item Value Reference Range Interpretation Comme nts URIC ACID (test code = URIC) 6.6 mg/dL 2.6-6.0 H LACTIC DEHYDROGENASE(LDH)2022-10-26 15:49:00* Test Item Value Reference Range Interpretation Comme nts LACTIC DEHYDROGENASE(LDH) (t est code = LDH) 132 units/L 81-234 N CBC W/AUTO [id number] 15:45:00* Test Item Value Reference Range Interpretation Comme nts WHITE BLOOD CELL (test code = WBC) 7.4 K/mm3 6.5-12.3 N RED BLOOD CELL (test code = RBC) 3.76 M/mm3 3.51-4.69 N HEMOGLOBIN (test code = HGB) 10.8 g/dL 10.1-13.8 N HEMATOCRIT (test code = HCT) 31.9 % 32.5-41.8 L MEAN CELL VOLUME (test code = MCV) 84.8 fL 84.6-96.6 N MEAN CELL HGB (test code = MCH) 28.7 pg 27.3-33.9 N MEAN CELL HGB CONCETRATION ( test code = MCHC) 33.9 gm/dL 32.0-34.2 N RED CELL DISTRIBUTION WIDTH (test code = RDW) 13.7 % 12.2-16.3 N PLATELET COUNT (test code = PLT) 314 K/mm3 134-363 N MEAN PLATELET VOLUME (test c ode = MPV) 11.8 fL 9.2-12.7 N NEUTROPHIL % (test code = NT%) 55.7 % 57.9-77.3 L LYMPHOCYTE % (test code = LY%) 35.0 % 14.5-29.7 H MONOCYTE % (test code = MO%) 7.3 % 3.6-10.2 N EOSINOPHIL % (test code = EO%) 1.2 % 0.0-3.0 N BASOPHIL % (test code = BA%) 0.5 % 0.1-0.9 N NEUTROPHIL # (test code = NT#) 4.1 K/mm3 LYMPHOCYTE # (test code = LY#) 2.6 K/mm3 MONOCYTE # (test code = MO#) 0.5 K/mm3 EOSINOPHIL # (test code = EO#) 0.09 K/mm3 BASOPHIL # (test code = BA#) 0.0 K/mm3 RBC MORPHOLOGY REQUIRED (jose t code = RBCM) NORMAL NORMAL PLATELET MORPHOLOGY REQUIRED (test code = PLTMR) NORMAL NORMAL COMPREHENSIVE METABOLIC [id number] 06:29:00* Test Item Value Reference Range Interpretation Comme nts SODIUM (test code = NA) 137 mEq/L 135-145 N POTASSIUM (test code = K) 3.5 mEq/L 3.5-5.0 N CHLORIDE (test code = CL) 106 mEq/L 100-115 N CARBON DIOXIDE (test code = CO2) 23 mEq/L 22-31 N ANION GAP (test code = GAP) 11.10 10-20 N GLUCOSE (test code = GLU) 107 mg/dL 65-110 N BLOOD UREA NITROGEN (test code = BUN) 9 mg/dL 7-18 N GLOMERULAR FILTRATION RATE (test code = GFR) 119 ml/min >60 N The Glomerular Filtration Rate is a calculated parameterbased on serum Creatinine, patient age and sex. GFR valuesless than 60 mL/min/1.73 square meters are indicative ofChronic Kidney Disease. Values less than 15 mL/min/1.73square meters indicate Kidney failure. The calculation forGFR is based on the CKD-EPI (2020) calculation. This formulais race indifferent and is the recommended formula for GFRby the National Kidney Foundation for Adults.The GFR will not calculate if the sex is unknown or if thepatient's age is <18 years. CREATININE (test code = CREAT) 0.7 mg/dL 0.5-1.0 N TOTAL PROTEIN (test code = PROT) 6.6 gm/dL 6.3-8.2 N ALBUMIN (test code = ALB) 2.6 gm/dL 3.4-4.8 L CALCIUM (test code = CA) 8.7 mg/dL 8.4-10.2 N BILIRUBIN TOTAL (test code = BILT) 0.2 mg/dL 0.2-1.0 N SGOT/AST (test code = AST) 16 units/L 15-37 N SGPT/ALT (test code = ALT) 21 units/L 12-78 N ALKALINE PHOSPHATASE TOTAL (test code = ALKP) 268 units/L 46-116 H URIC [id number] 06:29:00* Test Item Value Reference Range Interpretation Comme nts URIC ACID (test code = URIC) 4.7 mg/dL 2.6-6.0 N LACTIC DEHYDROGENASE(LDH)2022-09-25 06:29:00* Test Item Value Reference Range Interpretation Comme nts LACTIC DEHYDROGENASE(LDH) (t est code = LDH) 135 units/L 81-234 N CBC W/AUTO [id number] 06:26:00* Test Item Value Reference Range Interpretation Comme nts WHITE BLOOD CELL (test code = WBC) 7.5 K/mm3 6.5-12.3 N RED BLOOD CELL (test code = RBC) 3.52 M/mm3 3.51-4.69 N HEMOGLOBIN (test code = HGB) 10.3 g/dL 10.1-13.8 N HEMATOCRIT (test code = HCT) 31.5 % 32.5-41.8 L MEAN CELL VOLUME (test code = MCV) 89.5 fL 84.6-96.6 N MEAN CELL HGB (test code = MCH) 29.3 pg 27.3-33.9 N MEAN CELL HGB CONCETRATION ( test code = MCHC) 32.7 gm/dL 32.0-34.2 N RED CELL DISTRIBUTION WIDTH (test code = RDW) 13.4 % 12.2-16.3 N PLATELET COUNT (test code = PLT) 303 K/mm3 134-363 N MEAN PLATELET VOLUME (test c ode = MPV) 11.0 fL 9.2-12.7 N MANUAL DIFF REQUIRED (test c ode = MDIFF) YES RBC MORPHOLOGY REQUIRED (jose t code = RBCM) ABNORMAL NORMAL PLATELET MORPHOLOGY REQUIRED (test code = PLTMR) NORMAL NORMAL WBC [id number] 06:26:00* Test Item Value Reference Range Interpretation Comme nts SEGMENTED NEUTROPHILS (test code = SEG) 59 % 56.5-79.4 N LYMPHOCYTE (test code = LYMPH) 19 % 20-40 L TOTAL CELLS COUNTED (test co de = TCC) 100 #CELLS BAND NEUTROPHIL (test code = BAND) 1 % 0-5 N ATYPICAL LYMPH (test code = ALYMPH) 13 % MONOCYTE (test code = MON) 3 % 0-8 N EOSINOPHIL (test code = EOS) 3 % 0-4 N BASOPHIL (test code = BASO) 1 % 0-2 N METAMYELOCYTE (test code = META) 1 % 0-0 H POLYCHROMASIA (test code = POLC) 1+ ANISOCYTOSIS (test code = ANISO) 1+ MICROCYTOSIS (test code = MICR) 1+ MACROCYTOSIS (test code = MACR) 1+ ECHINOCYTES (test code = ECH) 1+ OVALOCYTES (test code = OVAL) 1+ SCHISTOCYTES (test code = ANITA) 1+ HELMET CELLS (test code = HEL) 1+ ACANTHOCYTES (test code = ACAN) 1+ PLATELET ESTIMATE (test code = PLTEST) ADEQUATE ADEQ PLATELET MORPHOLOGY (test co de = PLTMORPH) NORMAL NORMAL UR PROTEIN/CREATININE [id number] 06:20:00* Test Item Value Reference Range Interpretation Comme nts UR PROTEIN RANDOM (test code = PROTU) 6.1 mg/dL UR CREATININE RANDOM (test code = CREATU) 32.1 mg/dL PROTEIN/CREATININE RATIO (te st code = P/CRATIO) 190.0 mg/gcrea <200 TOTAL BETA HCG [id number] 15:18:39* Test Item Value Reference Range Interpretation Comme nts BETA HCG (test code = 3441507189) See_Comment [Automated [employer]] The system which generated this result transmitted reference range: Non- female and male patients: <5 mIU/mL. The reference range was not used to interpret this result as normal/abnormal. PILAR (test code = PILAR) Gestational Age ?Range (mIU/mL) 1-10 ?Weeks ?[id number] Weeks ?17113-21312967-27 Weeks ?1753-68877269-01 Weeks ?8096-989729 Biotin has been reported to cause a negative bias, interpret results relative to patient's use of biotin. [facility] METABOLIC PANEL (NA, K, CL, CO2, GLUCOSE, BUN, CREATININE, CA)2022-05-18 14:34:48* Test Item Value Reference Range Interpretation Comme nts NA (test code = 2503470464) 137 mmol/L 135-145 K (test code = 6445280141) 4.0 mmol/L 3.5-5.0 CL (test code = 1845422540) 104 mmol/L 98-108 CO2 TOTAL (test code = 9169471125) 24 mmol/L 23-31 AGAP (test code = 3664179355) 2-16 BUN (test code = 1698109581) 9 mg/dL 7-23 GLUCOSE (test code = 6200822570) 87 mg/dL 70-110 CREATININE (test code = 2651578314) 0.49 mg/dL 0.50-1.04 L CALCIUM (test code = 4918331304) 9.3 mg/dL 8.6-10.6 eGFR (test code = 6957653285) mL/min/1.73m2 PILAR (test code = PILAR) Association of Glomerular Filtration Rate (GFR) and Staging of Kidney Disease* + --+ --+ ------+| GFR (mL/min/1.73 m2) ?| With Kidney Damage ?| ?Without Kidney Damage+ --------+ --------+ +| ?>90 ?| ?Stage one ?| ? Normal ?+ ---+ ---+ -------+| ?60-89 ?| ?Stage two ?| ? Decreased GFR ? + --+ --+ ------+| ?30-59 ?| ?Stage three ?| ? Stage three ? + --+ --+ ------+| ?15-29 ?| ?Stage four ? | ? Stage four ?+ ---+ ---+ -------+| ?<15 (or dialysis) ? ?| ?Stage five ? | ? Stage five ?+ ---+ ---+ -------+ *Each stage assumes the associated GFR level has been in effect for at least three months. ?Stages 1 to 5, with or without kidney disease, indicate chronic kidney disease. Notes: Determination of stages one and two (with eGFR >59mL/min/1.73 m2) requires estimation of kidney damage for at least three months as defined by structural or functional abnormalities of the kidney, manifested by either:Pathological abnormalities or Markers of kidney damage (including abnormalities in the composition of the blood or urine or abnormalities in imaging tests). Lab Interpretation (test code = 34445-5) Abnormal [facility] WITH [id number] 14:22:24* Test Item Value Reference Range Interpretation Comme nts WBC (test code = 6690-2) See_Comment [Automated [employer] You] The system which generated this result transmitted reference range: 4.30 - 11.10 10*3/?L. The reference range was not used to interpret this result as normal/abnormal. RBC (test code = 789-8) See_Comment L [Automated [employer] You] The system which generated this result transmitted reference range: 3.93 - 5.25 10*6/?L. The reference range was not used to interpret this result as normal/abnormal. HGB (test code = 718-7) 11.2 g/dL 11.6-15.0 L HCT (test code = 4544-3) 32.9 % 35.7-45.2 L MCV (test code = 787-2) 84.8 fL 80.6-95.5 MCH (test code = 785-6) 28.9 pg 25.9-32.8 MCHC (test code = 786-4) 34.0 g/dL 31.6-35.1 RDW-SD (test code = 81423-9) 48.2 fL 39.0-49.9 RDW-CV (test code = 788-0) 15.7 % 12.0-15.5 H PLT (test code = 777-3) See_Comment [Automated messa ge] The system which generated this result transmitted reference range: 166 - 358 10*3/?L. The reference range was not used to interpret this result as normal/abnormal. MPV (test code = 16340-3) 10.7 fL 9.5-12.9 NRBC/100 WBC (test code = 5117001745) See_Comment [Automated [employer] ssage] The system which generated this result transmitted reference range: 0.0 - 10.0 /100 WBCs. The reference range was not used to interpret this result as normal/abnormal. NRBC x10^3 (test code = 0474381496) See_Comment [Automated messa ge] The system which generated this result transmitted reference range: 10*3/?L. The reference range was not used to interpret this result as normal/abnormal. GRAN MAT (NEUT) % (test code = 770-8) 67.3 % IMM GRAN % (test code = 5104142476) 0.20 % LYMPH % (test code = 736-9) 24.8 % MONO % (test code = 5905-5) 5.7 % EOS % (test code = 713-8) 1.5 % BASO % (test code = 706-2) 0.5 % GRAN MAT x10^3(ANC) (test code = 2019225028) 4.41 10*3/uL 1.88-7.09 IMM GRAN x10^3 (test code = 9215666421) 0.00-0.06 LYMPH x10^3 (test code = 731-0) 1.62 10*3/uL 1.32-3.29 MONO x10^3 (test code = 742-7) 0.37 10*3/uL 0.33-0.92 EOS x10^3 (test code = 711-2) 0.10 10*3/uL 0.03-0.39 BASO x10^3 (test code = 704-7) 0.03 10*3/uL 0.01-0.07 Lab Interpretation (test code = 65228-8) Abnormal [facility] BETA HCG [id number] 14:57:46* Test Item Value Reference Range Interpretation Comme nts BETA HCG (test code = 5744757243) See_Comment [Automated [employer]] The system which generated this result transmitted reference range: Non- female and male patients: <5 mIU/mL. The reference range was not used to interpret this result as normal/abnormal. PILAR (test code = PILAR) Gestational Age ?Range (mIU/mL) 1-10 ?Weeks ?[id number] Weeks ?48377-31976254-37 Weeks ?5204-67996156-87 Weeks ?8738-709353 Biotin has been reported to cause a negative bias, interpret results relative to patient's use of biotin. [facility]. METABOLIC PANEL (55648)2022-04-06 14:24:14* Test Item Value Reference Range Interpretation Comme nts NA (test code = 7532537331) 139 mmol/L 135-145 K (test code = 4395893494) 4.4 mmol/L 3.5-5 CL (test code = 1480617258) 106 mmol/L 98-108 CO2 TOTAL (test code = 9480079555) 22 mmol/L 23-31 L AGAP (test code = 8489082361) 2-16 BUN (test code = 1576958110) 10 mg/dL 7-23 GLUCOSE (test code = 0590530137) 98 mg/dL 70-110 CREATININE (test code = 2241250071) 0.54 mg/dL 0.5-1.04 TOTAL BILI (test code = 9513849637) 0.3 mg/dL 0.1-1.1 CALCIUM (test code = 7358614183) 9.4 mg/dL 8.6-10.6 T PROTEIN (test code = 2972764160) 7.9 g/dL 6.3-8.2 ALBUMIN (test code = 7657541973) 4.2 g/dL 3.5-5 ALK PHOS (test code = 0791911849) 74 U/L 34-122 ALTv (test code = 1742-6) 28 U/L 5-35 AST(SGOT) (test code = 9563412752) 21 U/L 13-40 eGFR (test code = 4040126336) mL/min/1.73m2 PILAR (test code = PILAR) Association of Glomerular Filtration Rate (GFR) and Staging of Kidney Disease* + --+ --+ ------+| GFR (mL/min/1.73 m2) ?| With Kidney Damage ?| ?Without Kidney Damage+ --------+ --------+ +| ?>90 ?| ?Stage one ?| ? Normal ?+ ---+ ---+ -------+| ?60-89 ?| ?Stage two ?| ? Decreased GFR ? + --+ --+ ------+| ?30-59 ?| ?Stage three ?| ? Stage three ? + --+ --+ ------+| ?15-29 ?| ?Stage four ? | ? Stage four ?+ ---+ ---+ -------+| ?<15 (or dialysis) ? ?| ?Stage five ? | ? Stage five ?+ ---+ ---+ -------+ *Each stage assumes the associated GFR level has been in effect for at least three months. ?Stages 1 to 5, with or without kidney disease, indicate chronic kidney disease. Notes: Determination of stages one and two (with eGFR >59mL/min/1.73 m2) requires estimation of kidney damage for at least three months as defined by structural or functional abnormalities of the kidney, manifested by either:Pathological abnormalities or Markers of kidney damage (including abnormalities in the composition of the blood or urine or abnormalities in imaging tests). Lab Interpretation (test code = 68418-3) Abnormal [facility] WITH [id number] 14:16:11* Test Item Value Reference Range Interpretation Comme nts WBC (test code = 6690-2) See_Comment [Automated messa ge] The system which generated this result transmitted reference range: 4.30 - 11.10 10*3/?L. The reference range was not used to interpret this result as normal/abnormal. RBC (test code = 789-8) See_Comment [Automated messa ge] The system which generated this result transmitted reference range: 3.93 - 5.25 10*6/?L. The reference range was not used to interpret this result as normal/abnormal. HGB (test code = 718-7) 11.4 g/dL 11.6-15 L HCT (test code = 4544-3) 34.7 % 35.7-45.2 L MCV (test code = 787-2) 85.9 fL 80.6-95.5 MCH (test code = 785-6) 28.2 pg 25.9-32.8 MCHC (test code = 786-4) 32.9 g/dL 31.6-35.1 RDW-SD (test code = 04416-6) 50.4 fL 39-49.9 H RDW-CV (test code = 788-0) 16.3 % 12-15.5 H PLT (test code = 777-3) See_Comment [Automated messa ge] The system which generated this result transmitted reference range: 166 - 358 10*3/?L. The reference range was not used to interpret this result as normal/abnormal. MPV (test code = 12367-8) 10.5 fL 9.5-12.9 NRBC/100 WBC (test code = 1003686566) See_Comment [Automated [employer] ssage] The system which generated this result transmitted reference range: 0.0 - 10.0 /100 WBCs. The reference range was not used to interpret this result as normal/abnormal. NRBC x10^3 (test code = 5817958335) See_Comment [Automated messa ge] The system which generated this result transmitted reference range: 10*3/?L. The reference range was not used to interpret this result as normal/abnormal. GRAN MAT (NEUT) % (test code = 770-8) 59.2 % IMM GRAN % (test code = 7365696903) 0.30 % LYMPH % (test code = 736-9) 31.0 % MONO % (test code = 5905-5) 7.1 % EOS % (test code = 713-8) 1.9 % BASO % (test code = 706-2) 0.5 % GRAN MAT x10^3(ANC) (test code = 2097113947) 3.65 10*3/uL 1.88-7.09 IMM GRAN x10^3 (test code = 4195677306) 0-0.06 LYMPH x10^3 (test code = 731-0) 1.91 10*3/uL 1.32-3.29 MONO x10^3 (test code = 742-7) 0.44 10*3/uL 0.33-0.92 EOS x10^3 (test code = 711-2) 0.12 10*3/uL 0.03-0.39 BASO x10^3 (test code = 704-7) 0.03 10*3/uL 0.01-0.07 Lab Interpretation (test code = 21840-9) [id number]* Test Item Value Reference Range Interpretation Comme nts HEMOGLOBIN (test code = HGB) 9.1 g/dL 10.1-13.8 L HEMATOCRIT (test code = HCT) 29.3 % 32.5-41.8 L RUBELLA [id number] 06:47:00* Test Item Value Reference Range Interpretation Comme nts RUBELLA SCREEN (test code = RUBSC) 23.5 IUnit/ml Results >10.0IUn its/ml are considered positive inaccordance with the CLSI guidelines and based on the WHO International Standard for Anti-Rubella serum as anindicator of immune status and a breakpoint to detect mostseropositive persons. AG HEPATITIS B [id number] 05:52:00* Test Item Value Reference Range Interpretation Comme nts AG HEPATITIS B SURFACE (test code = HBSAG) NONREACTIVE NONREACTIVE AB HEPATITIS C [id number] 05:52:00* Test Item Value Reference Range Interpretation Comme nts AB HEPATITIS C (test code = HCVAB) NONREACTIVE NONREACTIVE SIGNAL TO CUTOFF (test code = CUTOFF) <0.02 <0.80 N AB [id number] 05:52:00* Test Item Value Reference Range Interpretation Comme nts AB TREPONEMA (test code = TREPAB) NONREACTIVE NONREACTIVE AB HIV 1 05:52:00* Test Item Value Reference Range Interpretation Comme nts AB HIV 1 2 (test code = NEC34RW) NONREACTIVE NONREACTIVE Done by [employer] HIV Ag/Ab Combo Screen AB HIV 1 05:31:00* Test Item Value Reference Range Interpretation Comme nts AB HIV 1 2 (test code = DWI51LX) NONREACTIVE AG HEPATITIS B [id number] 05:31:00* Test Item Value Reference Range Interpretation Comme nts AG HEPATITIS B SURFACE (test code = HBSAG) NONREACTIVE NONREACTIVE AB HEPATITIS C [id number] 05:31:00* Test Item Value Reference Range Interpretation Comme nts AB HEPATITIS C (test code = HCVAB) NONREACTIVE SIGNAL TO CUTOFF (test code = CUTOFF) <0.80 AB [id number] 05:31:00* Test Item Value Reference Range Interpretation Comme nts AB TREPONEMA (test code = TREPAB) NONREACTIVE NONREACTIVE CBC W/AUTO [id number] 04:26:00* Test Item Value Reference Range Interpretation Comme nts WHITE BLOOD CELL (test code = WBC) 11.4 K/mm3 6.5-12.3 N RED BLOOD CELL (test code = RBC) 3.82 M/mm3 3.51-4.69 N HEMOGLOBIN (test code = HGB) 10.5 g/dL 10.1-13.8 N HEMATOCRIT (test code = HCT) 32.3 % 32.5-41.8 L MEAN CELL VOLUME (test code = MCV) 84.6 fL 84.6-96.6 N MEAN CELL HGB (test code = MCH) 27.5 pg 27.3-33.9 N MEAN CELL HGB CONCETRATION ( test code = MCHC) 32.5 gm/dL 32.0-34.2 N RED CELL DISTRIBUTION WIDTH (test code = RDW) 14.2 % 12.2-16.3 N PLATELET COUNT (test code = PLT) 296 K/mm3 134-363 N MEAN PLATELET VOLUME (test c ode = MPV) 11.1 fL 9.2-12.7 N NEUTROPHIL % (test code = NT%) 69.9 % 57.9-77.3 N LYMPHOCYTE % (test code = LY%) 21.6 % 14.5-29.7 N MONOCYTE % (test code = MO%) 7.0 % 3.6-10.2 N EOSINOPHIL % (test code = EO%) 0.7 % 0.0-3.0 N BASOPHIL % (test code = BA%) 0.2 % 0.1-0.9 N NEUTROPHIL # (test code = NT#) 8.0 K/mm3 LYMPHOCYTE # (test code = LY#) 2.5 K/mm3 MONOCYTE # (test code = MO#) 0.8 K/mm3 EOSINOPHIL # (test code = EO#) 0.08 K/mm3 BASOPHIL # (test code = BA#) 0.0 K/mm3 RBC MORPHOLOGY REQUIRED (jose t code = RBCM) NORMAL NORMAL PLATELET MORPHOLOGY REQUIRED (test code = PLTMR) NORMAL NORMAL HGB [id number] 07:37:00* Test Item Value Reference Range Interpretation Comme nts HEMOGLOBIN (test code = HGB) 10.3 g/dL 10.7-13.9 L HEMATOCRIT (test code = HCT) 31.7 % 32.1-42.1 L AG HEPATITIS B [id number] 06:54:00* Test Item Value Reference Range Interpretation Comme nts AG HEPATITIS B SURFACE (test code = HBSAG) NONREACTIVE NONREACTIVE IS CONSENT FORM SIGNED FOR HIV TESTING? YAB HEPATITIS C [id number] 06:54:00* Test Item Value Reference Range Interpretation Comme nts AB HEPATITIS C (test code = HCVAB) NONREACTIVE NONREACTIVE SIGNAL TO CUTOFF (test code = CUTOFF) <0.02 <0.80 N IS CONSENT FORM SIGNED FOR HIV TESTING? YAB [id number] 06:54:00* Test Item Value Reference Range Interpretation Comme nts AB TREPONEMA (test code = TREPAB) NONREACTIVE NONREACTIVE IS CONSENT FORM SIGNED FOR HIV TESTING? YAB HIV 1 [id number] 06:54:00* Test Item Value Reference Range Interpretation Comme nts AB HIV 1 2 (test code = PSG73DU) NONREACTIVE NONREACTIVE Done by [employer] HIV Ag/Ab Combo Screen IS CONSENT FORM SIGNED FOR HIV TESTING? YCBC W/AUTO [id number] 05:56:00* Test Item Value Reference Range Interpretation Comme nts WHITE BLOOD CELL (test code = WBC) 8.9 K/mm3 6.6-12.1 N RED BLOOD CELL (test code = RBC) 4.01 M/mm3 3.45-5.01 N HEMOGLOBIN (test code = HGB) 11.5 g/dL 10.7-13.9 N HEMATOCRIT (test code = HCT) 35.6 % 32.1-42.1 N MEAN CELL VOLUME (test code = MCV) 89 fL 84.1-94.8 N MEAN CELL HGB (test code = MCH) 28.7 pg 27-35 N MEAN CELL HGB CONCETRATION ( test code = MCHC) 32.3 gm/dL 32.2-34.1 N RED CELL DISTRIBUTION WIDTH (test code = RDW) 14.6 % 12.4-16.5 N PLATELET COUNT (test code = PLT) 282 K/mm3 133-385 N IMMATURE PLATELET FRACTION ( test code = IPF) 0.0 % 0.0-10.8 N MEAN PLATELET VOLUME (test c ode = MPV) 11.3 fl 9.1-12.7 N NEUTROPHIL % (test code = NT%) 52.7 % 56.5-79.4 L LYMPHOCYTE % (test code = LY%) 37.6 % 14.3-34.3 H MONOCYTE % (test code = MO%) 6.7 % 5.1-10.4 N EOSINOPHIL % (test code = EO%) 2.1 % 0.1-3.0 N BASOPHIL % (test code = BA%) 0.3 % 0.1-1.0 N NEUTROPHIL # (test code = NT#) 4.7 K/mm3 LYMPHOCYTE # (test code = LY#) 3.4 K/mm3 MONOCYTE # (test code = MO#) 0.6 K/mm3 EOSINOPHIL # (test code = EO#) 0.19 K/mm3 BASOPHIL # (test code = BA#) 0.0 K/mm3 RBC MORPHOLOGY REQUIRED (jose t code = RBCM) NORMAL NORMAL PLATELET MORPHOLOGY REQUIRED (test code = PLTMR) NORMAL NORMAL"
[2024-08-07 22:04] LABS: SARS-CoV-2 Antigen CONTROL BLUE LINE VIS/BG OK; SARS-CoV-2 Antigen Rapid Res Negative (Negative)
--- NOTE | 2024-08-07 22:07 | RAD REPORT ---
Procedure: Chest Pa And Lat (2 Views) HISTORY: Chest pain COMPARISON: none FINDINGS: The lungs appear clear of acute infiltrate. No significant pleural effusion noted. The heart is normal size. IMPRESSION: No acute abnormality is displayed.
[2024-08-07] MEDS ORDERED: ALBUTEROL 2.5 MG/3 ML NEB SOL ONE (22:26)
[2024-08-07] MEDS ORDERED: IPRATROPIUM BROM 0.5MG/2.5ML ONE (22:26)
--- NOTE | 2024-08-07 23:01 | ER ---
Nurse's Notes [facility] Name: Amira Soto Age: 34 yrs Sex: Female : 1990 Arrival Date: 08/07/2024 Time: 20:55 Bed 18 Private MD: Diagnosis: Acute upper respiratory infection, unspecified Presentation: 08/07 21:00 Chief complaint: Patient states: cough that has been ongoing since Saturday. cp4 21:00 Coronavirus screen: Client denies travel out of the [place] in the last 14 days. At this cp4 time, the client does not indicate any symptoms associated with coronavirus-19. Ebola Screen: Patient negative for fever greater than or equal to 101.5 degrees Fahrenheit, and additional compatible Ebola Virus Disease symptoms Patient denies exposure to infectious person. Patient denies travel to an Ebola-affected area in the 21 days before illness onset. No symptoms or risks identified at this time. Initial Sepsis Screen: Does the patient meet any 2 criteria? No. Patient's initial sepsis screen is negative. Does the patient have a suspected source of infection? No. Patient's initial sepsis screen is negative. Risk Assessment: Do you want to hurt yourself or someone else? Patient reports no desire to harm self or others. Onset of symptoms was August 01, 2024. 21:00 Method Of Arrival: Ambulatory cp4 21:00 Acuity: DALLIN 4 cp4 Triage Assessment: 21:27 General: Appears in no apparent distress. comfortable, Behavior is calm, cooperative, cp4 appropriate for age. Pain: Denies pain. Respiratory: Breath sounds are clear bilaterally. 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 - Infectious Disease History:: Denies. - Social history:: Smoking status: Patient denies any tobacco usage or history of. Screenin:15 [facility] ED Fall Risk Assessment (Adult) History of falling in the last 3 months, dd2 including since admission No falls in past 3 months (0 pts) Confusion or Disorientation No (0 pts) Intoxicated or Sedated No (0 pts) Impaired Gait No (0 pts) Mobility Assist Device Used No (0 pt) Altered Elimination No (0 pt) Score/Fall Risk Level 0 - 2 = Low Risk Oriented to surroundings, Maintained a safe environment, Educated pt \T\ family on fall prevention, incl call for assistance when getting out of bed, Assessed \T\ reinforced patient's understanding of fall precautions, Hourly rounding (assess needs \T\ fall precautionary measures) done. Abuse screen: Denies threats or abuse. Nutritional screening: No deficits noted. Tuberculosis screening: No symptoms or risk factors identified. Assessment: 22:15 General: Appears in no apparent distress. Behavior is calm, cooperative, appropriate dd2 for age. Pain: Pain: Complains of pain in chest Pain does not radiate. Quality of pain is described as burning, Aggravated by cold, COUGHING. Neuro: No deficits noted. Prieto Agitation-Sedation Scale (RASS): 0 - Alert and Calm Level of Consciousness is awake, alert, obeys commands, Oriented to person, place, time, situation, Appropriate for age. Cardiovascular: Reports chest pain, shortness of breath, Patient's skin is warm and dry. Respiratory: Airway is patent Respiratory effort is even, unlabored, Respiratory pattern is regular, symmetrical, Breath sounds are clear bilaterally. GI: No deficits noted. No signs and/or symptoms were reported involving the gastrointestinal system. : No deficits noted. No signs and/or symptoms were reported regarding the genitourinary system. EENT: Nares are clear Reports nasal congestion. Derm: No deficits noted. No signs and/or symptoms reported regarding the dermatologic system. Musculoskeletal: No deficits noted. No signs and/or symptoms reported regarding the musculoskeletal system. Circulation, motion, and sensation intact. Range of motion: intact in all extremities. Vital Signs: 21:00 BP 133 / 98; Pulse 89; Resp 18; Temp 98.6; Pulse Ox 99% ; Weight 95.25 kg; Height 5 ft. cp4 5 in. ; Pain 0/10; 23:33 BP 139 / 85; Pulse 87; Resp 16; Pulse Ox 99% on R/A; dd2 21:00 Body Mass Index 34.95 (95.25 kg, 165.1 cm) cp4 21:00 Pain Scale: Adult cp4 Oksana Coma Score: 22:15 Eye Response: spontaneous(4). Motor Response: obeys commands(6). Verbal Response: dd2 oriented(5). Total: 15. ED Course: 20:57 Patient arrived in ED. jj6 21:02 [facility] Drew [facility]. kb 21:02 Eder Jimenez MD is Attending Physician. kb 21:27 Triage completed. cp4 21:27 Arm band placed on right wrist. Patient placed in waiting room. cp4 21:32 COVID swab sent to lab. Flu and/or RSV swab sent to lab. Strep swab sent to lab. cp4 22:04 Chest Pa And Lat (2 Views) XRAY In Process Unspecified. EDMS 22:15 Patient has correct armband on for positive identification. Bed in low position. Call dd2 light in reach. Side rails up X 1. Client placed on continuous cardiac and pulse oximetry monitoring. NIBP monitoring applied. Door closed. Noise minimized. Warm blanket given. Pillow given. Verbal reassurance given. 22:15 No provider procedures requiring assistance completed. Patient did not have IV access dd2 during this emergency room visit. Patient maintains SpO2 saturation greater than 95% on room air. 22:30 Initial Neb Treatment Given as ordered Patient was instructed and evaluated on dd2 procedure. Patient tolerated procedure well without adverse effect. 23:26 MAY SUTTON, RN is Primary Nurse. dd2 23:44 Provided Education on: D/C EDUCATION. dd2 Administered Medications: 22:29 Drug: Albuterol Inhalation 2.5 mg Inhalation once Route: Inhalation; ha1 22:59 Follow up: Response: No adverse reaction dd2 22:29 Drug: Ipratropium Inhalation Aerosol 0.5 mg Inhalation once Route: Inhalation; ha1 22:59 Follow up: Response: No adverse reaction dd2 Medication: 22:15 VIS not applicable for this client. dd2 Outcome: 23:01 Discharge ordered by . kb 23:43 Discharged to home ambulatory, dd2 23:43 Condition: stable 23:43 Discharge instructions given to patient, Instructed on discharge instructions, follow up and referral plans. medication usage, Demonstrated understanding of instructions, follow-up care, medications, Prescriptions given X 1, 23:44 Patient left the ED. dd2 Signatures: Dispatcher [employer] EDTX Cheryl Drew FNP-C FNP-[place] Luci Peralesfer [id number] Natalie Bailey RN RN 1 Sandie Neumann 4 MAY SUTTON, RN RN dd2 Corrections: (The following items were deleted from the chart) : 22:15 Initial Neb Treatment Given as ordered Patient was instructed and evaluated on dd2 procedure dd2 : 22:15 Patient tolerated procedure well without adverse effect dd2 dd2
--- NOTE | 2024-08-07 23:01 | EDPHYS ---
Physician Documentation [facility] Name: Amira Soto Age: 34 yrs Sex: Female : 1990 Arrival Date: 08/07/2024 Time: 20:55 Bed 18 Private MD: ED Physician Eder Jimenez HPI: 08/07 21:14 This 34 yrs old Female presents to ER via Unassigned with complaints of Cough, kb Congestion, Fever. 21:14 Pt is a 34 year old female who presents for cough, congestion, fever, intermittent kb shortness of breath that started 6 days ago. Reports the cough has gotten worse, but the fever resolved. Denies n/v/d. 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 - Infectious Disease History:: Denies. - Social history:: Smoking status: Patient denies any tobacco usage or history of. ROS: 21:15 Constitutional: As per HPI kb Exam: 21:15 Constitutional: This is a well developed, well nourished patient who is awake, alert, kb and in no acute distress. Head/Face: Normocephalic, atraumatic. ENT: Moist Mucous membranes Cardiovascular: Regular rate Respiratory: Respirations even and unlabored. No increased work of breathing. Talking in full sentences Skin: Warm, dry with normal turgor. Normal color. MS/ Extremity: Pulses equal, no cyanosis. Neurovascular intact. Full, normal range of motion. Neuro: Awake and alert, GCS 15, oriented to person, place, time, and situation. Vital Signs: 21:00 BP 133 / 98; Pulse 89; Resp 18; Temp 98.6; Pulse Ox 99% ; Weight 95.25 kg; Height 5 ft. cp4 5 in. ; Pain 0/10; 23:33 BP 139 / 85; Pulse 87; Resp 16; Pulse Ox 99% on R/A; dd2 21:00 Body Mass Index 34.95 (95.25 kg, 165.1 cm) cp4 21:00 Pain Scale: Adult cp4 Railroad Coma Score: 22:15 Eye Response: spontaneous(4). Motor Response: obeys commands(6). Verbal Response: dd2 oriented(5). Total: 15. MDM: 21:02 Medical Screening Exam initiated kb 23:00 Data reviewed: vital signs, nurses notes. kb 23:00 Differential Diagnosis: Bronchitis Influenza Upper Respiratory Infection. I considered kb the following discharge prescriptions or medication management in the emergency department I discussed and recommended Over The Counter medications, Antibiotics: At this time antibiotics are not recommended, Antivirals: At this time, antivirals are not recommended. Counseling: I had a detailed discussion with the patient and/or guardian regarding the historical points, exam findings, and any diagnostic results supporting the discharge/admit diagnosis, lab results, radiology results, the need for outpatient follow up, a family practitioner, to return to the emergency department if symptoms worsen or persist or if there are any questions or concerns that arise at home. 08/07 21:15 Order name: Flu; Complete Time: 22:20 kb 08/07 21:15 Order name: SARS-COV-2 Antigen Rapid; Complete Time: 22:20 kb 08/07 21:15 Order name: Strep; Complete Time: 22:20 kb 08/07 22:06 Order name: Throat Culture EDMD 08/07 21:15 Order name: Chest Pa And Lat (2 Views) XRAY; Complete Time: 22:20 kb Administered Medications: 22:29 Drug: Albuterol Inhalation 2.5 mg Inhalation once Route: Inhalation; ha1 22:59 Follow up: Response: No adverse reaction dd2 22:29 Drug: Ipratropium Inhalation Aerosol 0.5 mg Inhalation once Route: Inhalation; ha1 22:59 Follow up: Response: No adverse reaction dd2 Disposition: 08/08 03:20 Co-signature as Attending Physician, Eder Jimenez MD I agree with the assessment and cora plan of care. Disposition Summary: 08/07/24 23:01 Discharge Ordered Notes: Location: Home kb Condition: Stable kb Diagnosis - Acute upper respiratory infection, unspecified kb Followup: kb - With: Emergency Department - When: As needed - Reason: Worsening of condition Followup: kb - With: Private Physician - When: 2 - 3 days - Reason: Recheck today's complaints, Continuance of care, Re-evaluation by your physician Discharge Instructions: - Discharge Summary Sheet kb - Upper Respiratory Infection, Adult, [id number] kb - Viral Respiratory Infection, [id number] kb Forms: - Medication Reconciliation Form kb - Antibiotic Education kb - Prescription Opioid Use kb - Patient Portal Instructions kb - Leadership Thank You Letter kb - Work release form dd2 Prescriptions: - albuterol sulfate 90 mcg/actuation Inhalation HFA Aerosol Inhaler - inhale 2 puff INHALATION route every 4 to 6 hours As needed; 1 unit; Refills: kb 0, Product Selection Permitted Signatures: Dispatcher [employer] Cheryl Melton, SHANDA KARIMI-Eder Guo MD MD cha Ayala, Heidy, RN RN ha1 Sandie Neumann 4 MAY SUTTON RN dd2
[2024-08-08 04:11] VITALS: BP 139/85; TEMP 98.6; O2SAT 99
== END 2024-08-07 23:44 | disposition home or self-care (01) ==
LOC: ER 20:55
DX: J06.9 Acute upper respiratory infection, unspecified (principal); Z11.52 Encounter for screening for COVID-19
CPT/HCPCS: 36415; 71046; 87070; 87081; 87804; 87811; 94640; 99284; J7613; J7644